=== PATIENT | female | born 1940 | race Caucasian/White ===

== ENCOUNTER 2016-09-03 19:44 | Emergency (ER) | payer MEDICARE ==
[~2016-09-03 19:44] MED LIST: ALPRAZOLAM0.5 MG; ALPRAZOLAM1 MG PO; ASPIRIN EC LOW81 MG; CARDIZEM CD240 MG; COUMADIN5 M2 PO; COUMADIN7.5 MG; CRESTOR5 MG; DILTIAZEM 24HR120 MG PO; DILTIAZEM ER120 MG; DILTIAZEM HCL; DIOVAN160 M; DIOVAN320 MG PO; HYDROCODONE/APA1 CAP PO; HYDROCODONE/APA1 TA; LISINOPRIL5 MG; METOPROLOL TART25 MG; METOPROLOL TART25 MG PO; NEXIUM40 M1 PO; NEXIUM40 MG; NORCO 5/325 TAB1 TAB PO; PAXIL30 MG; PRAVACHOL40 MG; PROTONIX40 MG PO; SYNTHROID125 MCG; SYNTHROID25 MC1 PO; SYNTHROID25 MCG; TRAMADOL HCL50 MG; VITAMIN D 22000 UNIT PO; VITAMIN D1000 UNI1; ZEGERID 40 MG C1 CAP; ZETIA10 MG; ZETIA10 MG PO; [UNRECOGNIZED DRUG - OTHER]
[2016-09-03] MEDS ORDERED: LABETALOL HCL300 M1 PO (20:22)
[2016-09-03] MEDS ORDERED: ZOCOR10 M1 PO (20:23)
[2016-09-03] MEDS ORDERED: ANORO ELLIPTA1 EAC1 INH (20:24)
[2016-09-03] MEDS ORDERED: XANAX1 M1 PO (20:26)
[2016-09-03] MEDS ORDERED: NORVASC5 M2 PO (20:26)
[2016-09-03] MEDS ORDERED: PAMELOR25 M1 PO (20:26)
[2016-09-03] MEDS ORDERED: AMIODARONE HCL200 M1 PO (20:26)
== END 2016-09-03 21:48 ==
LOC: EDMED 19:44
PROC: 2W3CX1Z Immobilization of Right Lower Arm using Splint (ICD-10-PCS; principal; 2016-09-03)
DX: S52.531A Colles' fracture of right radius, initial encounter for closed fracture (principal); I48.91 Unspecified atrial fibrillation; I10 Essential (primary) hypertension; E07.9 Disorder of thyroid, unspecified; K21.9 Gastro-esophageal reflux disease without esophagitis; J44.9 Chronic obstructive pulmonary disease, unspecified; W01.0XXA Fall on same level from slipping, tripping and stumbling without subsequent striking against object, initial encounter; Y93.89 Activity, other specified; Y92.019 Unspecified place in single-family (private) house as the place of occurrence of the external cause; Y99.8 Other external cause status; Z90.710 Acquired absence of both cervix and uterus; Z90.49 Acquired absence of other specified parts of digestive tract; Z90.89 Acquired absence of other organs; Z95.1 Presence of aortocoronary bypass graft; Z79.890 Hormone replacement therapy; Z79.899 Other long term (current) drug therapy
CPT/HCPCS: J1170